=== PATIENT | male | born 1925 | race Caucasian/White ===

== ENCOUNTER → 2016-08-21 | Outpatient (CLI) | payer MEDICARE | LOC: LAB 13:32 | PROVIDERS: ATTEND Family Medicine | DX: Z51.81 Encounter for therapeutic drug level monitoring (principal); Z79.01 Long term (current) use of anticoagulants | CPT/HCPCS: 36415; 85610 ==

== ENCOUNTER 2016-09-11 13:22 | Outpatient (RCR) | payer MEDICARE ==
[~2016-09-11 13:22] MED LIST: ALB.5NB20 HHN; ALBU2.5V4 IH; ALPR.25T PO; AMIO100T4 PO; ASPI-586 PO; CALC1TAB38 PO; CARB1TAB6 PO; CEFD300C PO; CLOP75TA3 PO; DRON400T2 PO; FORM12CA IH; IPRA30SP NS; LEVO112T2 PO; MECL-105 PO; MOME0.132 IH; NF-SOLIF5T PO; NITR0.4T7 SL; OMEG-7 PO; PANT40SU PO; SENN-1 PO; SERT50TA2 PO; SIMV20TA PO; SOTA80TA PO; WARF2.5T PO; WRF2.5T PO
[2016-11-24] MEDS ORDERED: DIGO125T PO (19:01)
[2016-11-24] MEDS ORDERED: RANI300T6 PO (19:01)
== END 2016-12-10 | disposition home or self-care (01) ==
LOC: DT 13:22
PROVIDERS: ATTEND Internal Medicine Gastroenterology
DX: R63.4 Abnormal weight loss (principal); R63.6 Underweight; Z68.1 Body mass index [BMI] 19.9 or less, adult; K90.0 Celiac disease; Z71.3 Dietary counseling and surveillance
CPT/HCPCS: 97803

== ENCOUNTER → 2016-09-15 | Outpatient (CLI) | payer MEDICARE | LOC: LAB 13:35 | PROVIDERS: ATTEND Family Medicine | DX: Z51.81 Encounter for therapeutic drug level monitoring (principal); Z79.01 Long term (current) use of anticoagulants | CPT/HCPCS: 36415; 85610 ==

== ENCOUNTER → 2016-10-16 | Outpatient (CLI) | payer MEDICARE | LOC: LAB 14:09 | PROVIDERS: ATTEND Family Medicine | DX: Z51.81 Encounter for therapeutic drug level monitoring (principal); Z79.01 Long term (current) use of anticoagulants | CPT/HCPCS: 36415; 85610 ==

== ENCOUNTER → 2016-11-14 | Outpatient (CLI) | payer MEDICARE | LOC: LAB 13:37 | PROVIDERS: ATTEND Family Medicine | DX: Z51.81 Encounter for therapeutic drug level monitoring (principal); Z79.01 Long term (current) use of anticoagulants | CPT/HCPCS: 36415; 85610 ==

== ENCOUNTER 2016-11-24 16:15 | Emergency (ER) | payer MEDICARE ==
[~2016-11-24] VITALS: Ht 182.9 cm; Wt 61.9 kg
--- OUTSIDE RECORDS SUMMARY | 2016-11-24 16:21 | XMS REPORT | Continuity of Care Document ---
Author Author [facility] Organization [facility] Address Unknown Phone Unavailable Allergies Active Description Code Type Severity Reaction Onset Reported/Identified Relationship to Patient Clinical Status Yes tamsulosin HCl [id number] Drug Allergy Unknown N/A 07/29/2012 Yes ciprofloxacin NKMA N/A unknown 12/16/2013 Yes doxycycline NKMA N/A unknown 12/16/2013 Yes dutasteride NKMA N/A Unknown 12/16/2013 Yes finasteride NKMA N/A Unknown 12/16/2013 Yes sulfamethoxazole NKMA N/A unknown 12/16/2013 Yes sulfamethoxazole [id number] Drug Allergy Mild Rash 06/08/2014 Yes trimethoprim [id number] Drug Allergy Mild Rash 06/08/2014 Yes ciprofloxacin [id number] Drug Allergy Unknown N/A 06/08/2014 Yes doxycycline [id number] Drug Allergy Unknown N/A 06/08/2014 Yes dutasteride [id number] Drug Allergy Unknown N/A 06/08/2014 Yes finasteride [id number] Drug Allergy Unknown N/A 06/08/2014 Yes Flomax NKMA N/A N/A 03/08/2015 Yes oxybutynin NKMA N/A N/A 03/08/2015 Medications Problems Date Dx Coded Attending Type Code Diagnosis Diagnosed By 05/10/2012 Ot 605 REDUN PREPUCE PHIMOSIS 06/26/2012 Ot 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 07/29/2012 Ot 427.31 ATRIAL FIBRILLATION 07/29/2012 Ot V58.61 ANTICOAGULANTS,LT,CURRENT USE 12/11/2012 Ot 427.89 CARDIAC DYSRHYTHMIAS NEC 12/11/2012 Ot 786.50 CHEST PAIN NOS 12/26/2012 Ot 724.2 LUMBAGO 05/05/2013 Dawood Mccracken MD Ot 600.00 HYPERTROPHY (BENIGN) OF PROSTATE W/O URI 05/05/2013 Dawood Mccracken MD Ot 600.01 HYPERTROPHY (BENIGN) OF PROSTATE W URINA 05/05/2013 Dawood Mccracken MD Ot 600.91 HYPERPLASIA OF PROSTATE, UNSPEC, W URINA 05/05/2013 Dawood Mccracken MD Ot 783.21 LOSS OF WEIGHT 05/05/2013 Dawood Mccracken MD Ot 788.20 RETENTION OF URINE NOS 05/05/2013 Dawood Mccracken MD Ot 788.21 INCOMPLETE BLADDER EMPTYING 05/05/2013 Dawood Mccracken MD Ot 788.41 URINARY FREQUENCY 05/05/2013 Dawood Mccracken MD Ot 789.04 ABDOMINAL PAIN, LEFT LOWER QUADRANT 06/12/2014 MAEGAN GOEL MD Ot 038.9 SEPTICEMIA NOS 06/12/2014 MAEGAN GOEL MD Ot 244.9 HYPOTHYROIDISM NOS 06/12/2014 MAEGAN GOEL MD Ot 276.51 DEHYDRATION 06/12/2014 MAEGAN GOEL MD Ot 300.00 ANXIETY STATE NOS 06/12/2014 MAEGAN GOEL MD Ot 333.94 RESTLESS LEGS SYNDROME 06/12/2014 MAEGAN GOEL MD Ot 414.01 CORONARY ATHEROSCLEROSIS OF [place] CORON 06/12/2014 MAEGAN GOEL MD Ot 427.31 ATRIAL FIBRILLATION 06/12/2014 MAEGAN GOEL MD Ot 486 PNEUMONIA, ORGANISM NOS 06/12/2014 MAEGAN GOEL MD Ot 493.90 ASTHMA, UNSPECIFIED 06/12/2014 MAEGAN GOEL MD Ot 518.82 OTHER PULMONARY INSUFFICIENCY, NEC 06/12/2014 MAEGAN GOEL MD Ot 530.81 ESOPHAGEAL REFLUX 06/12/2014 MAEGAN GOEL MD Ot 564.00 UNSPEC CONSTIPATION 06/12/2014 MAEGAN GOEL MD Ot 719.47 JOINT PAIN-ANKLE 06/12/2014 MAEGAN GOEL MD Ot 733.00 OSTEOPOROSIS NOS 06/12/2014 MAEGAN GOEL MD Ot 788.20 RETENTION OF URINE NOS 06/12/2014 MAEGAN GOEL MD Ot 824.8 FX ANKLE NOS-CLOSED 06/12/2014 MAEGAN GOEL MD Ot 995.91 SEPSIS 06/12/2014 MAEGAN GOEL MD Ot E000.8 OTHER EXTERNAL CAUSE STATUS 06/12/2014 MAEGAN GOEL MD Ot E030 UNSPECIFIED ACTIVITY 06/12/2014 MAEGAN GOEL MD Ot E849.0 ACCIDENT IN HOME 06/12/2014 MANASA ROSALES, MAEGAN [place] Ot E888.9 FALL NOS 06/12/2014 MANASA ROSALES, MAEGAN [place] Ot V58.61 ANTICOAGULANTS,LT,CURRENT USE 06/12/2014 MANASA ROSALES, MAEGAN [place] Ot V58.66 LONG-TERM (CURRENT) USE OF ASPIRIN 08/01/2014 VONDA ROSALES, MOE English Ot 285.9 08/01/2014 VONDA ROSALES, MOE English Ot 790.6 08/01/2014 VONDA ROSALES, MOE English Ot V58.61 08/01/2014 VONDA ROSALES, MOE English Ot V58.83 08/10/2014 VONDA ROSALES, MOE English Ot 276.51 08/11/2014 VONDA ROSALES, MOE English Ot 285.9 08/11/2014 VONDA ROSALES, MOE English Ot 790.6 08/11/2014 VONDA ROSALES, MOE English Ot V58.61 08/11/2014 VONDA ROSALES, MOE English Ot V58.83 08/19/2014 VONDA ROSALES, MOE English Ot 276.51 08/28/2014 VONDA ROSALES, MOE English Ot V58.61 08/28/2014 VONDA ROSALES, MOE English Ot V58.83 09/18/2014 ALEXEI ROSALES, NIDA [place] Ot 780.4 DIZZINESS AND GIDDINESS 09/24/2014 VONDA ROSALES, MOE English Ot 593.2 09/24/2014 VONDA ROSALES, MOE English Ot 789.01 10/07/2014 VONDA ROSALES, MOE English Ot 575.9 10/07/2014 VONDA ROSALES, MOE English Ot 789.00 10/07/2014 VONDA ROSALES, MOE [place] Ot 790.6 10/07/2014 VONDA ROSALES, MOE English Ot V58.61 10/07/2014 VONDA ROSALES, MOE English Ot 593.2 10/07/2014 VONDA ROSALES, MOE English Ot 789.01 10/08/2014 Ot 244.9 10/08/2014 Ot 285.9 10/08/2014 Ot 733.00 10/08/2014 Ot 790.6 10/08/2014 Ot V58.61 10/08/2014 Ot V58.69 10/08/2014 Ot 789.30 10/08/2014 Ot 427.31 10/08/2014 Ot 427.89 10/08/2014 Ot V58.61 10/08/2014 Ot V58.61 10/08/2014 Ot V58.61 10/08/2014 Ot 575.9 10/08/2014 Ot 575.10 10/08/2014 Ot 575.9 10/08/2014 Ot 562.10 10/08/2014 Ot 783.21 10/08/2014 Ot 789.00 10/08/2014 Ot V12.72 10/08/2014 Ot V58.61 10/08/2014 Ot V58.61 10/08/2014 Ot V58.61 10/08/2014 Ot V58.61 10/08/2014 Ot V58.61 10/08/2014 Ot V58.61 10/08/2014 Ot V58.61 10/08/2014 Ot V58.83 10/08/2014 Ot 427.31 10/08/2014 Ot V58.61 10/08/2014 Ot V58.83 10/08/2014 Ot 530.81 10/08/2014 Ot 553.3 10/08/2014 Ot 787.20 10/08/2014 Ot 244.9 10/08/2014 Ot 285.9 10/08/2014 Ot 790.29 10/08/2014 Ot 790.6 10/08/2014 Ot V58.61 10/08/2014 Ot V58.83 10/08/2014 Ot V58.61 10/08/2014 Ot V58.83 10/08/2014 Ot 579.0 10/08/2014 Ot V58.61 10/08/2014 Ot V58.83 10/08/2014 VONDA ROSALES, MOE English Ot V58.61 10/08/2014 VONDA ROSALES, MOE English Ot V58.69 10/08/2014 VONDA ROSALES, MOE English Ot V58.61 10/08/2014 VONDA ROSALES, MOE English Ot V58.61 10/08/2014 VONDA ROSALES, MOE English Ot V58.83 10/08/2014 VONDA ROSALES, MOE English Ot V58.61 10/08/2014 VONDA ROSALES, MOE R Ot V58.61 10/08/2014 VONDA ROSALES, MOE R Ot V58.61 10/08/2014 VONDA ROSALES, MOE R Ot V58.83 10/08/2014 VONDA ROSALES, MOE R Ot V58.61 10/08/2014 VONDA ROSALES, MOE R Ot V58.83 10/08/2014 VONDA ROSALES, MOE R Ot V58.61 10/08/2014 VONDA ROSALES, MOE R Ot V58.61 10/08/2014 Barbie ROSALES, Karil L Ot 793.19 10/08/2014 Barbie ROSALES, Karil L Ot V58.69 10/08/2014 VONDA ROSALES, MOE R Ot V58.61 10/08/2014 VONDA ROSALES, MOE R Ot 276.51 10/08/2014 VONDA ROSALES, MOE R Ot V58.61 10/08/2014 VONDA ROSALES, MOE R Ot V58.83 10/08/2014 VONDA ROSALES, MOE R Ot V58.61 10/08/2014 VONDA ROSALES, MOE R Ot V58.83 10/08/2014 VONDA ROSALES, MOE R Ot V58.61 10/08/2014 VONDA ROSALES, MOE R Ot V58.83 10/08/2014 VONDA ROSALES, MOE R Ot 427.9 10/08/2014 VONDA ROSALES, MOE R Ot 786.2 10/08/2014 VONDA ROSALES, MOE R Ot V58.61 10/08/2014 VONDA ROSALES, MOE R Ot V58.83 10/08/2014 VONDA ROSALES, MOE R Ot V58.61 10/08/2014 VONDA ROSALES, MOE R Ot V58.83 10/08/2014 VONDA ROSALES, MOE R Ot V58.61 10/08/2014 VONDA ROSALES, MOE R Ot V58.83 10/08/2014 VONDA ROSALES, MOE R Ot 285.9 10/08/2014 VONDA ROSALES, MOE R Ot 790.6 10/08/2014 VONDA ROSALES, MOE R Ot V58.61 10/08/2014 VONDA ROSALES, MOE R Ot V58.83 10/08/2014 VONDA ROSALES, MOE R Ot V58.61 10/08/2014 VONDA ROSALES, MOE R Ot V58.83 10/08/2014 VONDA ROSALES, MOE R Ot 575.9 10/08/2014 VONDA ROSALES, MOE R Ot 789.00 10/08/2014 VONDA ROSALES, MOE R Ot 790.6 10/08/2014 VONDA ROSALES, MOE R Ot V58.61 10/08/2014 VONDA ROSALES, MOE R Ot 593.2 10/08/2014 VONDA ROSALES, MOE R Ot 789.01 10/08/2014 VONDA ROSALES, MOE R Ot 593.2 10/08/2014 VONDA ROSALES, MOE R Ot 789.01 11/27/2014 Ot V58.61 11/27/2014 Ot V58.83 12/30/2014 Barbie ROSALES, Karil L Ot 427.31 12/30/2014 Barbie ROSALES, Karil L Ot 493.20 12/30/2014 Barbie ROSALES, Karil L Ot V58.69 01/12/2015 Barbie ROSALES, Karil L Ot 427.31 01/12/2015 Barbie ROSALES, Karil L Ot 493.20 01/12/2015 Barbie ROSALES, Karil L Ot V58.69 01/25/2015 VONDA ROSALES, MOE R Ot 575.9 01/25/2015 VONDA ROSALES, MOE English Ot 789.00 01/25/2015 VONDA ROSALES, MOE R Ot 790.6 01/25/2015 VONDA ROSALES, MOE R Ot V58.61 01/29/2015 VONDA ROSALES, MOE R Ot V58.61 01/29/2015 VONDA ROSALES, MOE English Ot V58.83 03/03/2015 VONDA ROSALES, MOE R Ot V58.61 03/03/2015 VONDA ROSALES, MOE R Ot V58.83 04/02/2015 VONDA ROSALES, MOE English Ot V58.61 04/02/2015 VONDA ROSALES, MOE English Ot V58.83 04/15/2015 VONDA ROSALES, MOE English Ot V58.61 05/04/2015 VONDA ROSALES, MOE English Ot V58.61 05/04/2015 VONDA ROSALES, MOE English Ot V58.83 05/13/2015 VONDA ROSALES, MOE English Ot V58.61 06/07/2015 VONDA ROSALES, MOE English Ot V58.61 06/07/2015 VONDA ROSALES, MOE English Ot V58.83 06/14/2015 VONDA ROSALES, MOE English Ot Z51.81 06/14/2015 VONDA ROSALES, MOE English Ot Z79.01 07/03/2015 SONNY RAYGOZA DO Ot E03.9 HYPOTHYROIDISM, UNSPECIFIED 07/03/2015 SONNY RAYGOZA DO Ot I25.10 ATHSCL HEART DISEASE OF [place] CORONARY 07/03/2015 SONNY RAYGOZA DO Ot I48.0 PAROXYSMAL ATRIAL FIBRILLATION 07/03/2015 SONNY RYAGOZA DO Ot I48.2 CHRONIC ATRIAL FIBRILLATION 07/03/2015 SONNY RAYGOZA DO Ot I95.1 ORTHOSTATIC HYPOTENSION 07/03/2015 SONNY RAYGOZA DO Ot R00.2 PALPITATIONS 07/03/2015 SONNY RAYGOZA DO Ot Z79.01 ACTIVITIES COORDINATOR (CURRENT) USE OF ANTICOAGULANT 07/06/2015 VONDA ROSALES, MOE English Ot Z51.81 07/06/2015 VONDA ROSALES, MOE English Ot Z79.01 08/05/2015 VONDA ROSALES, MOE English Ot Z51.81 08/05/2015 VONDA ROSALES, MOE English Ot Z79.01 08/05/2015 VONDA ROSALES, MOE English Ot Z79.899 09/17/2015 VONDA ROSALES, MOE English Ot Z79.01 FDC (CURRENT) USE OF ANTICOAGULANT 10/15/2015 VONDA ROSALES, MOE English Ot N28.1 10/21/2015 VONDA ROSALES, MOE English Ot N28.1 11/11/2015 VONDA ROSALES, MOE English Ot Z51.81 11/11/2015 VONDA ROSALES, MOE English Ot Z79.01 11/15/2015 VONDA ROSALES, MOE English Ot Z53.9 11/16/2015 VONDA ROSALES, MOE English Ot Z79.01 11/16/2015 MOE FERRARI MD Ot Z79.01 11/17/2015 MOE FERRARI MD Ot N28.1 11/17/2015 MOE FERRARI MD Ot N28.1 12/08/2015 MOE FERRARI MD Ot Z51.81 ENCOUNTER FOR THERAPEUTIC DRUG LEVEL MON 12/08/2015 MOE FERRARI MD Ot Z79.01 FDC (CURRENT) USE OF ANTICOAGULANT 12/20/2015 MOE FERRARI MD, Ot Z79.01 ACTIVITIES COORDINATOR (CURRENT) USE OF ANTICOAGULANT 12/20/2015 MOE FERRARI MD Ot Z79.01 FDC (CURRENT) USE OF ANTICOAGULANT 12/24/2015 MOE FERRARI MD, Ot Z79.01 FDC (CURRENT) USE OF ANTICOAGULANT 01/13/2016 MOE FERRARI MD Ot Z51.81 ENCOUNTER FOR THERAPEUTIC DRUG LEVEL MON 01/13/2016 MOE FERRARI MD Ot Z79.01 FDC (CURRENT) USE OF ANTICOAGULANT 01/19/2016 MOE FERRARI MD Ot Z79.01 FDC (CURRENT) USE OF ANTICOAGULANT 01/19/2016 MOE FERRARI MD Ot Z79.01 FDC (CURRENT) USE OF ANTICOAGULANT 01/20/2016 MOE FERRARI MD Ot Z79.01 ACTIVITIES COORDINATOR (CURRENT) USE OF ANTICOAGULANT 02/09/2016 MOE FERRARI MD Ot Z51.81 ENCOUNTER FOR THERAPEUTIC DRUG LEVEL MON 02/09/2016 MOE FERRARI MD Ot Z79.01 ACTIVITIES COORDINATOR (CURRENT) USE OF ANTICOAGULANT 02/17/2016 MOE FERRARI MD Ot Z51.81 ENCOUNTER FOR THERAPEUTIC DRUG LEVEL MON 02/17/2016 MOE FERRARI MD Ot Z79.01 ACTIVITIES COORDINATOR (CURRENT) USE OF ANTICOAGULANT 02/18/2016 MOE FERRARI MD Ot Z79.01 FDC (CURRENT) USE OF ANTICOAGULANT 02/18/2016 MOE FERRARI MD Ot Z79.01 FDC (CURRENT) USE OF ANTICOAGULANT 02/22/2016 MOE FERRARI MD Ot Z79.01 FDC (CURRENT) USE OF ANTICOAGULANT 02/23/2016 MOE FERRARI MD, Ot Z51.81 ENCOUNTER FOR THERAPEUTIC DRUG LEVEL MON 02/23/2016 MOE FERRARI MD Ot Z79.01 ACTIVITIES COORDINATOR (CURRENT) USE OF ANTICOAGULANT 03/09/2016 MOE FERRARI MD, Ot Z51.81 ENCOUNTER FOR THERAPEUTIC DRUG LEVEL MON 03/09/2016 MOE FERRARI MD, Ot Z79.01 FDC (CURRENT) USE OF ANTICOAGULANT 03/10/2016 MOE FERRARI MD, Ot Z51.81 ENCOUNTER FOR THERAPEUTIC DRUG LEVEL MON 03/10/2016 MOE FERRARI MD, Ot Z79.01 FDC (CURRENT) USE OF ANTICOAGULANT 03/17/2016 MOE FERRARI MD, Ot I48.91 UNSPECIFIED ATRIAL FIBRILLATION 03/17/2016 MOE FERRARI MD, Ot 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 03/17/2016 MOE FERRARI MD, Ot I48.91 UNSPECIFIED ATRIAL FIBRILLATION 03/17/2016 MOE FERRARI MD, Ot 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 03/22/2016 MOE FERRARI MD, Ot 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 03/22/2016 MOE FERRARI MD, Ot I48.91 UNSPECIFIED ATRIAL FIBRILLATION 03/22/2016 MOE FERARRI MD, Ot 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 03/22/2016 MOE FERRARI MD, Ot 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 03/22/2016 MOE FERRARI MD, Ot R79.89 OTHER SPECIFIED ABNORMAL FINDINGS OF BLO 03/22/2016 MOE FERRARI MD, Ot Z79.01 ACTIVITIES COORDINATOR (CURRENT) USE OF ANTICOAGULANT 03/28/2016 MOE FERRARI MD Ot 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 03/28/2016 MOE FERRARI MD Ot I48.91 UNSPECIFIED ATRIAL FIBRILLATION 03/28/2016 MOE FERRARI MD, Ot 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 03/28/2016 MOE FERRARI MD Ot 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 03/28/2016 MOE FERRARI MD Ot R79.89 OTHER SPECIFIED ABNORMAL FINDINGS OF BLO 03/28/2016 MOE FERRARI MD, Ot Z79.01 ACTIVITIES COORDINATOR (CURRENT) USE OF ANTICOAGULANT 04/10/2016 MOE FERRARI MD, Ot 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 04/10/2016 MOE FERRARI MD, Ot I48.91 UNSPECIFIED ATRIAL FIBRILLATION 04/10/2016 MOE FERRARI MD, Ot 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 04/10/2016 MOE FERRARI MD, Ot 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 04/10/2016 MOE FERRARI MD, Ot R79.89 OTHER SPECIFIED ABNORMAL FINDINGS OF BLO 04/10/2016 MOE FERRARI MD, Ot Z79.01 ACTIVITIES COORDINATOR (CURRENT) USE OF ANTICOAGULANT 04/17/2016 MOE FERRARI MD, Ot Z79.01 ACTIVITIES COORDINATOR (CURRENT) USE OF ANTICOAGULANT 04/17/2016 MOE FERRARI MD, Ot Z79.01 FDC (CURRENT) USE OF ANTICOAGULANT 04/18/2016 MOE FERRARI MD, Ot Z79.01 ACTIVITIES COORDINATOR (CURRENT) USE OF ANTICOAGULANT 04/21/2016 MOE FERRARI MD, Ot Z79.01 FDC (CURRENT) USE OF ANTICOAGULANT 04/21/2016 MOE FERRARI MD, Ot Z51.81 ENCOUNTER FOR THERAPEUTIC DRUG LEVEL MON 04/21/2016 MOE FERRARI MD, Ot Z79.01 ACTIVITIES COORDINATOR (CURRENT) USE OF ANTICOAGULANT 04/27/2016 MOE FERRARI MD, Ot 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 04/27/2016 MOE FERRARI MD, Ot I48.91 UNSPECIFIED ATRIAL FIBRILLATION 04/27/2016 MOE FERRARI MD, Ot 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 04/27/2016 MOE FERRARI MD, Ot 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 04/27/2016 MOE FERRARI MD, Ot R79.89 OTHER SPECIFIED ABNORMAL FINDINGS OF BLO 04/27/2016 MOE FERRARI MD, Ot Z79.01 FDC (CURRENT) USE OF ANTICOAGULANT 05/10/2016 MOE FERRARI MD Ot Z51.81 ENCOUNTER FOR THERAPEUTIC DRUG LEVEL MON 05/10/2016 MOE FERRARI MD Ot Z79.01 ACTIVITIES COORDINATOR (CURRENT) USE OF ANTICOAGULANT 05/18/2016 MOE FERRARI MD Ot Z79.01 FDC (CURRENT) USE OF ANTICOAGULANT 05/18/2016 MOE FERRARI MD Ot Z79.01 ACTIVITIES COORDINATOR (CURRENT) USE OF ANTICOAGULANT 2016 Barbie ROSALES, Atifil L Ot I48.0 PAROXYSMAL ATRIAL FIBRILLATION 2016 Barbie ROSALES, Karil L Ot I48.0 PAROXYSMAL ATRIAL FIBRILLATION 05/24/2016 MOE FERRARI MD Ot R63.4 ABNORMAL WEIGHT LOSS 05/24/2016 MOE FERRARI MD Ot R63.4 ABNORMAL WEIGHT LOSS 05/24/2016 MOE FERRARI MD Ot Z51.81 ENCOUNTER FOR THERAPEUTIC DRUG LEVEL MON 05/24/2016 MOE FERRARI MD Ot Z79.01 ACTIVITIES COORDINATOR (CURRENT) USE OF ANTICOAGULANT 05/24/2016 Domingo Valentin MD L Ot I48.0 PAROXYSMAL ATRIAL FIBRILLATION 05/24/2016 MOE FERRARI MD Ot R63.4 ABNORMAL WEIGHT LOSS 05/25/2016 MOE FERRARI MD Ot Z51.81 ENCOUNTER FOR THERAPEUTIC DRUG LEVEL MON 05/25/2016 MOE FERRARI MD Ot Z79.01 FDC (CURRENT) USE OF ANTICOAGULANT 05/25/2016 Domingo Valentin MD Ot I48.0 PAROXYSMAL ATRIAL FIBRILLATION 06/09/2016 MOE FERRARI MD Ot R63.4 ABNORMAL WEIGHT LOSS 06/12/2016 Barbie ROSALES, Karil L Ot I48.0 PAROXYSMAL ATRIAL FIBRILLATION 06/12/2016 MOE FERRARI MD Ot Z51.81 ENCOUNTER FOR THERAPEUTIC DRUG LEVEL MON 06/12/2016 MOE FERRARI MD Ot Z79.01 FDC (CURRENT) USE OF ANTICOAGULANT 06/13/2016 MOE FERRARI MD Ot R63.4 ABNORMAL WEIGHT LOSS 06/14/2016 MOE FERRARI MD Ot Z51.81 ENCOUNTER FOR THERAPEUTIC DRUG LEVEL MON 06/14/2016 MOE FERRARI MD Ot Z79.01 ACTIVITIES COORDINATOR (CURRENT) USE OF ANTICOAGULANT 06/14/2016 Barbie ROSALES Karil L Ot I48.0 PAROXYSMAL ATRIAL FIBRILLATION 06/16/2016 MOE FERRARI MD Ot Z79.01 ACTIVITIES COORDINATOR (CURRENT) USE OF ANTICOAGULANT 06/16/2016 MOE FERRARI MD Ot Z79.01 ACTIVITIES COORDINATOR (CURRENT) USE OF ANTICOAGULANT 06/16/2016 MOE FERRARI MD, Ot Z79.01 ACTIVITIES COORDINATOR (CURRENT) USE OF ANTICOAGULANT 06/19/2016 Ot 244.9 HYPOTHYROIDISM NOS 06/19/2016 Ot 285.9 ANEMIA NOS 06/19/2016 Ot 733.00 OSTEOPOROSIS NOS 06/19/2016 Ot 790.6 ABN BLOOD CHEMISTRY NEC 06/19/2016 Ot V58.61 ANTICOAGULANTS,LT,CURRENT USE 06/19/2016 Ot V58.69 OTH MED,LT,CURRENT USE 06/19/2016 Ot 789.30 ABDOMINAL/PELVIC SWELLING,MASS/LUMP UNSP 06/19/2016 Ot 427.31 ATRIAL FIBRILLATION 06/19/2016 Ot 427.89 CARDIAC DYSRHYTHMIAS NEC 06/19/2016 Ot V58.61 ANTICOAGULANTS,LT,CURRENT USE 06/19/2016 Ot V58.61 ANTICOAGULANTS,LT,CURRENT USE 06/19/2016 Ot V58.61 ANTICOAGULANTS,LT,CURRENT USE 06/19/2016 Ot 575.9 DIS OF GALLBLADDER NOS 06/19/2016 Ot 575.10 CHOLECYSTITIS, NOS 06/19/2016 Ot 575.9 DIS OF GALLBLADDER NOS 06/19/2016 Ot 562.10 DIVERTICULOSIS COLON (W/O MENT OF HEMORR 06/19/2016 Ot 783.21 LOSS OF WEIGHT 06/19/2016 Ot 789.00 ABDOMINAL PAIN, UNSPECIFIED SITE 06/19/2016 Ot V12.72 PERSONAL HISTORY OF COLONIC POLYPS 06/19/2016 Ot V58.61 ANTICOAGULANTS,LT,CURRENT USE 06/19/2016 Ot V58.61 ANTICOAGULANTS,LT,CURRENT USE 06/19/2016 Ot V58.61 ANTICOAGULANTS,LT,CURRENT USE 06/19/2016 Ot V58.61 ANTICOAGULANTS,LT,CURRENT USE 06/19/2016 Ot V58.61 ANTICOAGULANTS,LT,CURRENT USE 06/19/2016 Ot V58.61 ANTICOAGULANTS,LT,CURRENT USE 06/19/2016 Ot V58.61 ANTICOAGULANTS,LT,CURRENT USE 06/19/2016 Ot V58.83 ENCOUNTER FOR THERAPEUTIC DRUG MONITORIN 06/19/2016 Ot 427.31 ATRIAL FIBRILLATION 06/19/2016 Ot V58.61 ANTICOAGULANTS,LT,CURRENT USE 06/19/2016 Ot V58.83 ENCOUNTER FOR THERAPEUTIC DRUG MONITORIN 06/19/2016 Ot 530.81 ESOPHAGEAL REFLUX 06/19/2016 Ot 553.3 DIAPHRAGMATIC HERNIA 06/19/2016 Ot 787.20 DYSPHAGIA, UNSPECIFIED 06/19/2016 Ot 244.9 HYPOTHYROIDISM NOS 06/19/2016 Ot 285.9 ANEMIA NOS 06/19/2016 Ot 790.29 OTHER ABNORMAL GLUCOSE 06/19/2016 Ot 790.6 ABN BLOOD CHEMISTRY NEC 06/19/2016 Ot V58.61 ANTICOAGULANTS,LT,CURRENT USE 06/19/2016 Ot V58.83 ENCOUNTER FOR THERAPEUTIC DRUG MONITORIN 06/19/2016 Ot V58.61 ANTICOAGULANTS,LT,CURRENT USE 06/19/2016 Ot V58.83 ENCOUNTER FOR THERAPEUTIC DRUG MONITORIN 06/19/2016 Ot 579.0 CELIAC DISEASE 06/19/2016 Ot V58.61 ANTICOAGULANTS,LT,CURRENT USE 06/19/2016 Ot V58.83 ENCOUNTER FOR THERAPEUTIC DRUG MONITORIN 06/19/2016 VONDA ROSALES, MOE English Ot V58.61 ANTICOAGULANTS,LT,CURRENT USE 06/19/2016 MOE FERRARI MD Ot V58.69 OTH MED,LT,CURRENT USE 06/19/2016 MOE FERRARI MD Ot V58.61 ANTICOAGULANTS,LT,CURRENT USE 06/19/2016 MOE FERRARI MD Ot V58.61 ANTICOAGULANTS,LT,CURRENT USE 06/19/2016 MOE FERRARI MD Ot V58.83 ENCOUNTER FOR THERAPEUTIC DRUG MONITORIN 06/19/2016 MOE FERRRAI MD Ot V58.61 ANTICOAGULANTS,LT,CURRENT USE 06/19/2016 MOE FERRARI MD Ot V58.61 ANTICOAGULANTS,LT,CURRENT USE 06/19/2016 MOE FERRARI MD Ot V58.61 ANTICOAGULANTS,LT,CURRENT USE 06/19/2016 MOE FERRARI MD Ot V58.83 ENCOUNTER FOR THERAPEUTIC DRUG MONITORIN 06/19/2016 MOE FERRARI MD Ot V58.61 ANTICOAGULANTS,LT,CURRENT USE 06/19/2016 MOE FERRARI MD Ot V58.83 ENCOUNTER FOR THERAPEUTIC DRUG MONITORIN 06/19/2016 MOE FERRARI MD Ot V58.61 ANTICOAGULANTS,LT,CURRENT USE 06/19/2016 MOE FERRARI MD Ot V58.61 ANTICOAGULANTS,LT,CURRENT USE 06/19/2016 Barbie ROSALES, Domingo Bravo Ot 793.19 OTHER NONSPECIFIC ABNORMAL FINDING OF CARITO 06/19/2016 Barbie ROSALES, Domingo Bravo Ot V58.69 OTH MED,LT,CURRENT USE 06/19/2016 MOE FERRARI MD Ot V58.61 ANTICOAGULANTS,LT,CURRENT USE 06/19/2016 MOE FERRARI MD Ot 276.51 DEHYDRATION 06/19/2016 MOE FERRARI MD Ot V58.61 ANTICOAGULANTS,LT,CURRENT USE 06/19/2016 MOE FERRARI MD Ot V58.83 ENCOUNTER FOR THERAPEUTIC DRUG MONITORIN 06/19/2016 MOE FERRARI MD Ot V58.61 ANTICOAGULANTS,LT,CURRENT USE 06/19/2016 MOE FERRARI MD Ot V58.83 ENCOUNTER FOR THERAPEUTIC DRUG MONITORIN 06/19/2016 MOE FERRARI MD Ot V58.61 ANTICOAGULANTS,LT,CURRENT USE 06/19/2016 MOE FERRARI MD Ot V58.83 ENCOUNTER FOR THERAPEUTIC DRUG MONITORIN 06/19/2016 MOE FERRARI MD Ot 427.9 CARDIAC DYSRHYTHMIA NOS 06/19/2016 MOE FERRARI MD Ot 786.2 COUGH 06/19/2016 MOE FERRARI MD Ot V58.61 ANTICOAGULANTS,LT,CURRENT USE 06/19/2016 MOE FERRARI MD Ot V58.83 ENCOUNTER FOR THERAPEUTIC DRUG MONITORIN 06/19/2016 MOE FERRARI MD Ot V58.61 ANTICOAGULANTS,LT,CURRENT USE 06/19/2016 MOE FERRARI MD Ot V58.83 ENCOUNTER FOR THERAPEUTIC DRUG MONITORIN 06/19/2016 MOE FERRARI MD Ot V58.61 ANTICOAGULANTS,LT,CURRENT USE 06/19/2016 MOE FERRARI MD Ot V58.83 ENCOUNTER FOR THERAPEUTIC DRUG MONITORIN 06/19/2016 MOE FERRARI MD Ot 285.9 ANEMIA NOS 06/19/2016 MOE FERRARI MD Ot 790.6 ABN BLOOD CHEMISTRY NEC 06/19/2016 MOE FERRARI MD Ot V58.61 ANTICOAGULANTS,LT,CURRENT USE 06/19/2016 MOE FERRARI MD Ot V58.83 ENCOUNTER FOR THERAPEUTIC DRUG MONITORIN 06/19/2016 MOE FERRARI MD Ot V58.61 ANTICOAGULANTS,LT,CURRENT USE 06/19/2016 MOE FERRRAI MD Ot V58.83 ENCOUNTER FOR THERAPEUTIC DRUG MONITORIN 06/19/2016 MOE FERRARI MD Ot 575.9 DIS OF GALLBLADDER NOS 06/19/2016 MOE FERRARI MD Ot 789.00 ABDOMINAL PAIN, UNSPECIFIED SITE 06/19/2016 MOE FERRARI MD Ot 790.6 ABN BLOOD CHEMISTRY NEC 06/19/2016 MOE FERRARI MD Ot V58.61 ANTICOAGULANTS,LT,CURRENT USE 06/19/2016 MOE FERRARI MD Ot V58.61 ANTICOAGULANTS,LT,CURRENT USE 06/19/2016 MOE FERRARI MD Ot V58.83 ENCOUNTER FOR THERAPEUTIC DRUG MONITORIN 06/19/2016 MOE FERRARI MD Ot 593.2 CYST OF KIDNEY, ACQUIRED 06/19/2016 MOE FERRARI MD Ot 789.01 ABDOMINAL PAIN, RIGHT UPPER QUADRANT 06/19/2016 Ot V58.61 ANTICOAGULANTS,LT,CURRENT USE 06/19/2016 Ot V58.83 ENCOUNTER FOR THERAPEUTIC DRUG MONITORIN 06/19/2016 Ot V58.61 ANTICOAGULANTS,LT,CURRENT USE 06/19/2016 Ot V58.83 ENCOUNTER FOR THERAPEUTIC DRUG MONITORIN 06/19/2016 Domingo Valentin MD Ot 427.31 ATRIAL FIBRILLATION 06/19/2016 Domingo Valentin MD Ot 493.20 CHRONIC OBSTRUCTIVE ASTHMA, NOS 06/19/2016 Barbie ROSALES, Domingo Bravo Ot V58.69 OTH MED,LT,CURRENT USE 06/19/2016 MOE FERRARI MD Ot V58.61 ANTICOAGULANTS,LT,CURRENT USE 06/19/2016 MOE FERRARI MD Ot V58.83 ENCOUNTER FOR THERAPEUTIC DRUG MONITORIN 06/19/2016 MOE FERRARI MD Ot V58.61 ANTICOAGULANTS,LT,CURRENT USE 06/19/2016 MOE FERRARI MD Ot V58.83 ENCOUNTER FOR THERAPEUTIC DRUG MONITORIN 06/19/2016 MOE FERRARI MD, Ot V58.61 ANTICOAGULANTS,LT,CURRENT USE 06/19/2016 MOE FERRARI MD, Ot V58.83 ENCOUNTER FOR THERAPEUTIC DRUG MONITORIN 06/19/2016 MOE FERRARI MD, Ot V58.61 ANTICOAGULANTS,LT,CURRENT USE 06/19/2016 MOE FERRARI MD, Ot V58.83 ENCOUNTER FOR THERAPEUTIC DRUG MONITORIN 06/19/2016 MOE FERRARI MD Ot Z51.81 ENCOUNTER FOR THERAPEUTIC DRUG LEVEL MON 06/19/2016 MOE FERRARI MD, Ot Z79.01 ACTIVITIES COORDINATOR (CURRENT) USE OF ANTICOAGULANT 06/19/2016 MOE FERRARI MD, Ot Z51.81 ENCOUNTER FOR THERAPEUTIC DRUG LEVEL MON 06/19/2016 MOE FERRARI MD, Ot Z79.01 ACTIVITIES COORDINATOR (CURRENT) USE OF ANTICOAGULANT 06/19/2016 Nati Kim APRN Ot I48.91 UNSPECIFIED ATRIAL FIBRILLATION 06/19/2016 MOE FERRARI MD, Ot Z51.81 ENCOUNTER FOR THERAPEUTIC DRUG LEVEL MON 06/19/2016 MOE FERRARI MD, Ot Z79.01 ACTIVITIES COORDINATOR (CURRENT) USE OF ANTICOAGULANT 06/19/2016 MOE FERRARI MD Ot Z79.899 OTHER ACTIVITIES COORDINATOR (CURRENT) DRUG THERAPY 06/19/2016 MOE FERRARI MD Ot Z53.9 PROCEDURE AND TREATMENT NOT CARRIED OUT , 06/19/2016 MOE FERRARI MD, Ot N28.1 CYST OF KIDNEY, ACQUIRED 06/19/2016 MOE FERRARI MD Ot Z51.81 ENCOUNTER FOR THERAPEUTIC DRUG LEVEL MON 06/19/2016 MOE FERRARI MD, Ot Z79.01 FDC (CURRENT) USE OF ANTICOAGULANT 06/19/2016 MOE FERRARI MD Ot Z51.81 ENCOUNTER FOR THERAPEUTIC DRUG LEVEL MON 06/19/2016 MOE FERRARI MD, Ot Z79.01 FDC (CURRENT) USE OF ANTICOAGULANT 06/19/2016 MOE FERRARI MD Ot Z51.81 ENCOUNTER FOR THERAPEUTIC DRUG LEVEL MON 06/19/2016 MOE FERRARI MD Ot Z79.01 ACTIVITIES COORDINATOR (CURRENT) USE OF ANTICOAGULANT 06/19/2016 MOE FERRARI MD, Ot Z51.81 ENCOUNTER FOR THERAPEUTIC DRUG LEVEL MON 06/19/2016 MOE FERRARI MD, Ot Z79.01 ACTIVITIES COORDINATOR (CURRENT) USE OF ANTICOAGULANT 06/19/2016 MOE FERRARI MD, Ot Z51.81 ENCOUNTER FOR THERAPEUTIC DRUG LEVEL MON 06/19/2016 MOE FERRARI MD, Ot Z79.01 ACTIVITIES COORDINATOR (CURRENT) USE OF ANTICOAGULANT 06/19/2016 MOE FERRARI MD, Ot 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 06/19/2016 MOE FERRARI MD, Ot I48.91 UNSPECIFIED ATRIAL FIBRILLATION 06/19/2016 MOE FERRARI MD, Ot 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 06/19/2016 MOE FERRARI MD, Ot 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 06/19/2016 MOE FERRARI MD Ot R79.89 OTHER SPECIFIED ABNORMAL FINDINGS OF BLO 06/19/2016 MOE FERRARI MD, Ot Z79.01 FDC (CURRENT) USE OF ANTICOAGULANT 06/19/2016 MOE FERRARI MD, Ot Z51.81 ENCOUNTER FOR THERAPEUTIC DRUG LEVEL MON 06/19/2016 MOE FERRARI MD, Ot Z79.01 FDC (CURRENT) USE OF ANTICOAGULANT 06/19/2016 MOE FERRARI MD Ot R63.4 ABNORMAL WEIGHT LOSS 06/19/2016 MOE FERRARI MD, Ot Z51.81 ENCOUNTER FOR THERAPEUTIC DRUG LEVEL MON 06/19/2016 MOE FERRARI MD, Ot Z79.01 ACTIVITIES COORDINATOR (CURRENT) USE OF ANTICOAGULANT 06/19/2016 Domingo Valentin MD Ot I48.0 PAROXYSMAL ATRIAL FIBRILLATION 06/19/2016 MOE FERRARI MD Ot Z79.01 ACTIVITIES COORDINATOR (CURRENT) USE OF ANTICOAGULANT 06/21/2016 MOE FERRARI MD, Ot Z51.81 ENCOUNTER FOR THERAPEUTIC DRUG LEVEL MON 06/21/2016 MOE FERRARI MD, Ot Z79.01 ACTIVITIES COORDINATOR (CURRENT) USE OF ANTICOAGULANT 07/06/2016 MOE FERRARI MD, Ot 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 07/06/2016 MOE FERRARI MD, Ot I48.91 UNSPECIFIED ATRIAL FIBRILLATION 07/06/2016 MOE FERRARI MD, Ot 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 07/06/2016 MOE FERRARI MD, Ot 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 07/06/2016 MOE FERRARI MD, Ot R79.89 OTHER SPECIFIED ABNORMAL FINDINGS OF BLO 07/06/2016 MOE FERRARI MD, Ot Z79.01 ACTIVITIES COORDINATOR (CURRENT) USE OF ANTICOAGULANT 07/10/2016 MOE FERRARI MD, Ot Z51.81 ENCOUNTER FOR THERAPEUTIC DRUG LEVEL MON 07/10/2016 MOE FERRARI MD, Ot Z79.01 FDC (CURRENT) USE OF ANTICOAGULANT 07/18/2016 MOE FERRARI MD, Ot Z79.01 ACTIVITIES COORDINATOR (CURRENT) USE OF ANTICOAGULANT 07/18/2016 MOE FERRARI MD, Ot Z79.01 FDC (CURRENT) USE OF ANTICOAGULANT 07/18/2016 MOE FERRARI MD, Ot Z79.01 FDC (CURRENT) USE OF ANTICOAGULANT 07/18/2016 MOE FERRARI MD, Ot Z79.01 FDC (CURRENT) USE OF ANTICOAGULANT 07/21/2016 MOE FERRARI MD, Ot 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 07/21/2016 MOE FERRARI MD, Ot 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 07/22/2016 MOE FERRARI MD, Ot 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 07/24/2016 MOE FERRARI MD, Ot 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 07/24/2016 MOE FERRARI MD, Ot Z51.81 ENCOUNTER FOR THERAPEUTIC DRUG LEVEL MON 07/24/2016 MOE FERRARI MD, Ot Z79.01 FDC (CURRENT) USE OF ANTICOAGULANT 07/26/2016 MOE FERRARI MD, Ot Z51.81 ENCOUNTER FOR THERAPEUTIC DRUG LEVEL MON 07/26/2016 MOE FERRARI MD, Ot Z79.01 ACTIVITIES COORDINATOR (CURRENT) USE OF ANTICOAGULANT 07/28/2016 MOE FERRARI MD, Ot 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 08/10/2016 SILVIA ROSALES, SOURAV [place] Ot K90.0 CELIAC DISEASE 08/11/2016 MOE FERRARI MD, Ot Z51.81 ENCOUNTER FOR THERAPEUTIC DRUG LEVEL MON 08/11/2016 MOE FERRARI MD, Ot Z79.01 FDC (CURRENT) USE OF ANTICOAGULANT 08/14/2016 OME FERRARI MD, Ot R63.4 ABNORMAL WEIGHT LOSS 08/16/2016 MOE FERRARI MD, Ot 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 08/21/2016 MOE FERRARI MD, Ot Z79.01 ACTIVITIES COORDINATOR (CURRENT) USE OF ANTICOAGULANT 08/21/2016 MOE FERRARI MD, Ot Z79.01 ACTIVITIES COORDINATOR (CURRENT) USE OF ANTICOAGULANT 08/22/2016 MOE FERRARI MD, Ot Z79.01 FDC (CURRENT) USE OF ANTICOAGULANT 08/23/2016 MOE FERRARI MD, Ot Z79.01 FDC (CURRENT) USE OF ANTICOAGULANT 08/23/2016 MOE FERRARI MD, Ot R63.4 ABNORMAL WEIGHT LOSS 08/25/2016 MOE FERRARI MD, Ot Z53.9 PROCEDURE AND TREATMENT NOT CARRIED OUT , 08/26/2016 MOE FERRARI MD, Ot Z51.81 ENCOUNTER FOR THERAPEUTIC DRUG LEVEL MON 08/26/2016 MOE FERRARI MD, Ot Z79.01 FDC (CURRENT) USE OF ANTICOAGULANT 08/30/2016 SOURAV VEGA MD Ot K90.0 CELIAC DISEASE 09/11/2016 SOURAV VEGA MD P Ot R63.4 ABNORMAL WEIGHT LOSS 09/11/2016 SOURAV VEGA MD P Ot R63.4 ABNORMAL WEIGHT LOSS 09/13/2016 MOE FERRARI MD, Ot Z51.81 ENCOUNTER FOR THERAPEUTIC DRUG LEVEL MON 09/13/2016 MOE FERRARI MD, Ot Z79.01 FDC (CURRENT) USE OF ANTICOAGULANT 09/15/2016 MOE FERRARI MD, Ot Z79.01 ACTIVITIES COORDINATOR (CURRENT) USE OF ANTICOAGULANT 09/15/2016 SOURAV VEGA MD Ot R63.4 ABNORMAL WEIGHT LOSS 09/15/2016 MOE FERRARI MD, Ot Z79.01 FDC (CURRENT) USE OF ANTICOAGULANT 09/18/2016 MOE FERRARI MD, Ot Z79.01 ACTIVITIES COORDINATOR (CURRENT) USE OF ANTICOAGULANT 09/18/2016 MOE FERRARI MD Ot K90.0 CELIAC DISEASE 09/18/2016 MOE FERRARI MD, Ot R63.4 ABNORMAL WEIGHT LOSS 09/18/2016 MOE FERRARI MD, Ot Z68.1 BODY MASS INDEX (BMI) 19 OR LESS, ADULT 09/18/2016 MOE FERRARI MD, Ot Z71.3 DIETARY COUNSELING AND SURVEILLANCE 09/20/2016 MOE FERRARI MD, Ot K90.0 CELIAC DISEASE 09/20/2016 MOE FERRARI MD, Ot R63.4 ABNORMAL WEIGHT LOSS 09/20/2016 MOE FERRARI MD, Ot Z68.1 BODY MASS INDEX (BMI) 19 OR LESS, ADULT 09/20/2016 MOE FERRARI MD, Ot Z71.3 DIETARY COUNSELING AND SURVEILLANCE 09/20/2016 MOE FERRARI MD, Ot Z79.01 ACTIVITIES COORDINATOR (CURRENT) USE OF ANTICOAGULANT 09/20/2016 SOURAV VEGA MD P Ot R63.4 ABNORMAL WEIGHT LOSS 09/20/2016 SOURAV VEGA MD Ot K90.0 CELIAC DISEASE 09/20/2016 SOURAV VEGA MD P Ot R63.4 ABNORMAL WEIGHT LOSS 09/20/2016 SOURAV VEGA MD P Ot R63.6 UNDERWEIGHT 09/20/2016 SOURAV VEGA MD Ot Z68.1 BODY MASS INDEX (BMI) 19 OR LESS, ADULT 09/20/2016 SOURAV VEGA MD Ot Z71.3 DIETARY COUNSELING AND SURVEILLANCE 09/22/2016 MOE FERRARI MD, Ot Z51.81 ENCOUNTER FOR THERAPEUTIC DRUG LEVEL MON 09/22/2016 MOE FERRARI MD, Ot Z79.01 ACTIVITIES COORDINATOR (CURRENT) USE OF ANTICOAGULANT 10/11/2016 MOE FERRARI MD, Ot Z51.81 ENCOUNTER FOR THERAPEUTIC DRUG LEVEL MON 10/11/2016 MOE FERRARI MD, Ot Z79.01 FDC (CURRENT) USE OF ANTICOAGULANT 10/16/2016 MOE FERRARI MD, Ot Z79.01 FDC (CURRENT) USE OF ANTICOAGULANT 10/16/2016 MOE FERRARI MD, Ot Z79.01 ACTIVITIES COORDINATOR (CURRENT) USE OF ANTICOAGULANT 10/17/2016 MOE FERRARI MD, Ot Z79.01 ACTIVITIES COORDINATOR (CURRENT) USE OF ANTICOAGULANT 10/18/2016 MOE FERRARI MD, Ot Z79.01 ACTIVITIES COORDINATOR (CURRENT) USE OF ANTICOAGULANT 10/19/2016 MOE FERRARI MD, Ot Z51.81 ENCOUNTER FOR THERAPEUTIC DRUG LEVEL MON 10/19/2016 MOE FERRARI MD, Ot Z79.01 ACTIVITIES COORDINATOR (CURRENT) USE OF ANTICOAGULANT 10/22/2016 MOE FERRARI MD, Ot Z51.81 ENCOUNTER FOR THERAPEUTIC DRUG LEVEL MON 10/22/2016 MOE FERRARI MD, Ot Z79.01 FDC (CURRENT) USE OF ANTICOAGULANT 11/06/2016 SOURAV VEGA MD Ot K90.0 CELIAC DISEASE 11/06/2016 SOURAV VEGA MD P Ot R63.4 ABNORMAL WEIGHT LOSS 11/06/2016 SOURAV VEGA MD Ot R63.6 UNDERWEIGHT 11/06/2016 SOURAV VEGA MD P Ot Z68.1 BODY MASS INDEX (BMI) 19 OR LESS, ADULT 11/06/2016 SOURAV VEGA MD Ot Z71.3 DIETARY COUNSELING AND SURVEILLANCE 11/07/2016 MOE FERRARI MD, Ot Z51.81 ENCOUNTER FOR THERAPEUTIC DRUG LEVEL MON 11/07/2016 MOE FERRARI MD, Ot Z79.01 ACTIVITIES COORDINATOR (CURRENT) USE OF ANTICOAGULANT 11/14/2016 MOE FERRARI MD, Ot Z79.01 FDC (CURRENT) USE OF ANTICOAGULANT 11/14/2016 MOE FERRARI MD, Ot Z79.01 ACTIVITIES COORDINATOR (CURRENT) USE OF ANTICOAGULANT 11/15/2016 MOE FERRARI MD, Ot Z79.01 FDC (CURRENT) USE OF ANTICOAGULANT 11/17/2016 MOE FERRARI MD, Ot Z51.81 ENCOUNTER FOR THERAPEUTIC DRUG LEVEL MON 11/17/2016 MOE FERRARI MD, Ot Z79.01 FDC (CURRENT) USE OF ANTICOAGULANT Procedures Code Description Performed By Performed On 13.41 01/29/2012 13.71 01/29/2012 45.23 06/26/2012 57.32 05/05/2013 Results Test Result Range Complete blood count (CBC) with automated white blood cell (WBC) differential - 03/17/16 13:54 Blood automated leukocyte count 6.73 4.0 -11.0 Erythrocytes 3.84 4.50-5.50 12.0-16.0;g/dL 11.0 13.5-17.0 Hematocrit 33.40 39.00-50.00 Automated erythrocyte mean corpuscular volume 87 80-100 Mean corpuscular hemoglobin (MCH) determination 28.6 26.0-34.0 Automated erythrocyte mean corpuscular hemoglobin concentration measurement ( mass/volume) 32.9 31.0-37.0 Erythrocyte distribution width 13.3 11.8 -15.6 Automated blood platelet count 252 150- 450 Automated blood platelet mean volume measurement 9.3 6.0-9.5 Automated neutrophil percentage 59 51- 67 Lymphocytes/100 leukocytes 25 20-46 Automated monocyte percentage 14 3-11 Eosinophil count auto 2 0-4 Automated basophil percentage 1 0-2 Automated blood neutrophil count 4.0 Blood lymphocytes count (number/volume) 1.7 Automated blood monocyte count 0.9 Blood absolute eosinophil count 0.1 Basophils 0.0 Prothrombin time (PT) with international normalized ratio (INR) - 03/17/16 13: 54 Prothrombin time (PT) in platelet poor plasma by coagulation assay 21.3 11.6-14.2 INR in platelet poor plasma by coagulation assay 1.9 0.8-1.4 Comprehensive metabolic panel - 03/17/16 13:54 Sodium measurement 81 70-110 Carbon dioxide measurement 26 22-29 Serum or plasma anion gap 16.0 3-15 BLOOD UREA NITROGEN 29 7-18 CREATININE SERUM 1.39 0.8-1.5 Brucella species antibody panel (IgG, IgM) 21 10-20 Estimated glomerular filtration rate (GFR) 58.3 Estimated glomerular filtration rate (GFR) non- 48.2 OSMOLALITY,CALCULATED 274 280-300 CALCIUM 9.7 8.8-10.8 Calculated ionized calcium measurement 4.4 3.8-4.6 BILIRUBIN,TOTAL 0.4 0.1-1.0 Serum or plasma alkaline phosphatase measurement 63 38-126 ASPARTATE AMINO TRANSFERASE 22 15-37 ALANINE AMINOTRANSFERASE 14 30-65 Serum or plasma total protein measurement 6.8 6.4-8.5 Serum or plasma albumin measurement 4.1 3.4-5.0 Serum or plasma albumin/globulin mass ratio 1.518 1.1-1.8 Vitamin D+Metabolites - 03/17/16 13:54 Vitamin D+Metabolites 68.7 30.0-100.0 Digoxin level - 03/17/16 13:54 Digoxin level 1.30 0.90-2.00 FERRITIN - 03/17/16 13:54 Serum or plasma ferritin measurement (mass/volume) 34 22-275 Serum or plasma gamma glutamyl transferase measurement (enzymatic activity/ volume) - 03/17/16 13:54 Serum or plasma gamma glutamyl transferase measurement (enzymatic activity/ volume) 15 12-64 Prothrombin time (PT) with international normalized ratio (INR) - 04/17/16 13: 56 Prothrombin time (PT) in platelet poor plasma by coagulation assay 22.6 11.6-14.2 INR in platelet poor plasma by coagulation assay 2.1 0.8-1.4 Prothrombin time (PT) with international normalized ratio (INR) - 05/18/16 13: 31 Prothrombin time (PT) in platelet poor plasma by coagulation assay 24.3 11.6-14.2 INR in platelet poor plasma by coagulation assay 2.3 0.8-1.4 Digoxin level - 05/23/16 10:00 Digoxin level 1.30 0.90-2.00 Prothrombin time (PT) with international normalized ratio (INR) - 06/16/16 11: 20 Prothrombin time (PT) in platelet poor plasma by coagulation assay 23.5 10.0-12.5 INR 2.1 0.8-1.4 Prothrombin time (PT) with international normalized ratio (INR) - 07/18/16 10: 02 Prothrombin time (PT) in platelet poor plasma by coagulation assay 23.4 10.0-12.5 INR 2.1 0.8-1.4 Complete blood count (CBC) with automated white blood cell (WBC) differential - 07/21/16 13:40 Blood automated leukocyte count 9.65 4.0 -11.0 Erythrocytes 3.73 4.50-5.50 12.0-16.0;g/dL 10.9 13.5-17.0 Hematocrit 33.00 39.00-50.00 Automated erythrocyte mean corpuscular volume 89 80-100 Mean corpuscular hemoglobin (MCH) determination 29.2 26.0-34.0 Automated erythrocyte mean corpuscular hemoglobin concentration measurement ( mass/volume) 33.0 31.0-37.0 Erythrocyte distribution width 12.8 11.8 -15.6 Automated blood platelet count 269 150- 450 Automated blood platelet mean volume measurement 9.2 6.0-9.5 Automated neutrophil percentage 67 51- 67 Lymphocytes/100 leukocytes 16 20-46 Automated monocyte percentage 15 3-11 Eosinophil count auto 2 0-4 Automated basophil percentage 0 0-2 Automated blood neutrophil count 6.5 Blood lymphocytes count (number/volume) 1.5 Automated blood monocyte count 1.4 Blood absolute eosinophil count 0.2 Basophils 0.0 FERRITIN - 07/21/16 13:40 Serum or plasma ferritin measurement (mass/volume) 34 22-275 Vitamin D+Metabolites - 08/03/16 11:50 Vitamin D+Metabolites 61.4 30.0-100.0 Prothrombin time (PT) with international normalized ratio (INR) - 08/21/16 13: 37 Prothrombin time (PT) in platelet poor plasma by coagulation assay 22.4 10.0-12.5 INR 2.0 0.8-1.4 Prothrombin time (PT) with international normalized ratio (INR) - 09/15/16 13: 42 Prothrombin time (PT) in platelet poor plasma by coagulation assay 25.1 10.0-12.5 INR 2.3 0.8-1.4 Prothrombin time (PT) with international normalized ratio (INR) - 10/16/16 14: 15 Prothrombin time (PT) in platelet poor plasma by coagulation assay 17.4 10.0-12.5 INR 1.6 0.8-1.4 Prothrombin time (PT) with international normalized ratio (INR) - 11/14/16 13: 42 Prothrombin time (PT) in platelet poor plasma by coagulation assay 20.9 10.0-12.5 INR 1.9 0.8-1.4 Encounters ACCT No. Visit Date/Time Discharge Status Pt. Type Provider Facility Loc./Unit Complaint [id number] 10/06/2015 14:51:00 2015 23:59:00 DIS Outpatient Joel Mcwilliams [facility] Pulm 5-6 MO RCK/ASTHMA npv [id number] 03/08/2015 12:58:00 2014 23:59:00 DIS Outpatient Arielle Duncan [facility] Pulm 6 [place] K [id number] 07/29/2014 12:58:00 2013 23:59:00 DIS Outpatient Joel Mcwilliams [facility] Pulm 6 MO K
--- OUTSIDE RECORDS SUMMARY | 2016-11-24 16:23 | XMS REPORT | Continuity of Care Document ---
Author Author [facility] Organization [facility] Address Unknown Phone Unavailable Allergies Active Description Code Type Severity Reaction Onset Reported/Identified Relationship to Patient Clinical Status Yes tamsulosin HCl [id number] Drug Allergy Unknown N/A 07/29/2012 Yes ciprofloxacin NKMA N/A unknown 12/16/2013 Yes doxycycline NKMA N/A unknown 12/16/2013 Yes dutasteride NKMA N/A Unknown 12/16/2013 Yes finasteride NKMA N/A Unknown 12/16/2013 Yes sulfamethoxazole NKMA N/A unknown 12/16/2013 Yes sulfamethoxazole [id number] Drug Allergy Mild Rash 06/08/2014 Yes trimethoprim [id number] Drug Allergy Mild Rash 06/08/2014 Yes ciprofloxacin [id number] Drug Allergy Unknown N/A 06/08/2014 Yes doxycycline [id number] Drug Allergy Unknown N/A 06/08/2014 Yes dutasteride [id number] Drug Allergy Unknown N/A 06/08/2014 Yes finasteride [id number] Drug Allergy Unknown N/A 06/08/2014 Yes Flomax [...] GOEL MD Ot 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 06/12/2014 MAEGAN GOEL MD Ot 427.31 ATRIAL FIBRILLATION 06/12/2014 MAEGAN GOEL MD Ot 486 PNEUMONIA, ORGANISM NOS 06/12/2014 MAEGAN GOEL MD Ot 493.90 ASTHMA, UNSPECIFIED 06/12/2014 MAEGAN GOEL MD Ot 518.82 OTHER PULMONARY INSUFFICIENCY, NEC 06/12/2014 MAEGAN GOEL MD Ot 530.81 ESOPHAGEAL REFLUX 06/12/2014 MAEGAN GOEL MD Ot 564.00 UNSPEC CONSTIPATION 06/12/2014 MAEGAN GOLE MD Ot 719.47 JOINT PAIN-ANKLE 06/12/2014 MAEGAN [...] English Ot 789.00 10/07/2014 VONDA ROSALES, MOE English Ot 790.6 10/07/2014 VONDA ROSALES, MOE English [...] DO Ot 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 07/03/2015 SONNY RAYGOZA DO Ot I48.0 PAROXYSMAL ATRIAL FIBRILLATION 07/03/2015 SONNY RAYGOZA DO Ot I48.2 CHRONIC ATRIAL FIBRILLATION 07/03/2015 SONNY RAYGOZA DO Ot I95.1 ORTHOSTATIC HYPOTENSION 07/03/2015 SONNY RAYGOZA DO Ot R00.2 PALPITATIONS 07/03/2015 SONNY RAYGOZA DO Ot Z79.01 HEARING SCREENER (CURRENT) USE OF ANTICOAGULANT 07/06/2015 VONDA ROSALES, MOE English Ot Z51.81 07/06/2015 VONDA ROSALES, MOE English Ot Z79.01 08/05/2015 VONDA ROSALES, MOE English Ot Z51.81 08/05/2015 VONDA ROSALES, MOE English Ot Z79.01 08/05/2015 VONDA ROSALES, MOE English Ot Z79.899 09/17/2015 VONDA ROSALES, MOE English Ot Z79.01 DETENTION (CURRENT) USE OF ANTICOAGULANT 10/15/2015 VONDA ROSALES, [...] MON 12/08/2015 MOE FERRARI MD Ot Z79.01 DETENTION (CURRENT) USE OF ANTICOAGULANT 12/20/2015 MOE FERRARI MD, Ot Z79.01 HEARING SCREENER (CURRENT) USE OF ANTICOAGULANT 12/20/2015 MOE FERRARI MD Ot Z79.01 DETENTION (CURRENT) USE OF ANTICOAGULANT 12/24/2015 MOE FERRARI MD, Ot Z79.01 DETENTION (CURRENT) USE OF ANTICOAGULANT 01/13/2016 MOE FERRARI MD Ot Z51.81 ENCOUNTER FOR THERAPEUTIC DRUG LEVEL MON 01/13/2016 MOE FERRARI MD Ot Z79.01 DETENTION (CURRENT) USE OF ANTICOAGULANT 01/19/2016 MOE FERRARI MD Ot Z79.01 DETENTION (CURRENT) USE OF ANTICOAGULANT 01/19/2016 MOE FERRARI MD Ot Z79.01 DETENTION (CURRENT) USE OF ANTICOAGULANT 01/20/2016 MOE FERRARI MD Ot Z79.01 HEARING SCREENER (CURRENT) USE OF ANTICOAGULANT 02/09/2016 MOE FERRARI MD Ot Z51.81 ENCOUNTER FOR THERAPEUTIC DRUG LEVEL MON 02/09/2016 MOE FERRARI MD Ot Z79.01 HEARING SCREENER (CURRENT) USE OF ANTICOAGULANT 02/17/2016 MOE FERRARI MD Ot Z51.81 ENCOUNTER FOR THERAPEUTIC DRUG LEVEL MON 02/17/2016 MOE FERRARI MD Ot Z79.01 HEARING SCREENER (CURRENT) USE OF ANTICOAGULANT 02/18/2016 MOE FERRARI MD Ot Z79.01 DETENTION (CURRENT) USE OF ANTICOAGULANT 02/18/2016 MOE FERRARI MD Ot Z79.01 DETENTION (CURRENT) USE OF ANTICOAGULANT 02/22/2016 MOE FERRARI MD Ot Z79.01 DETENTION (CURRENT) USE OF ANTICOAGULANT 02/23/2016 MOE FERRARI MD, Ot Z51.81 ENCOUNTER FOR THERAPEUTIC DRUG LEVEL MON 02/23/2016 MOE FERRARI MD Ot Z79.01 HEARING SCREENER (CURRENT) USE OF ANTICOAGULANT 03/09/2016 MOE FERRARI MD, Ot Z51.81 ENCOUNTER FOR THERAPEUTIC DRUG LEVEL MON 03/09/2016 MOE FERRARI MD, Ot Z79.01 DETENTION (CURRENT) USE OF ANTICOAGULANT 03/10/2016 MOE FERRARI MD, Ot Z51.81 ENCOUNTER FOR THERAPEUTIC DRUG LEVEL MON 03/10/2016 MOE FERRARI MD, Ot Z79.01 DETENTION (CURRENT) USE OF ANTICOAGULANT 03/17/2016 MOE FERRARI [...] Ot I48.91 UNSPECIFIED ATRIAL FIBRILLATION 03/22/2016 MOE FERRARI MD, Ot 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 03/22/2016 MOE FERRARI MD, Ot 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 03/22/2016 MOE FERRARI MD, Ot R79.89 OTHER SPECIFIED ABNORMAL FINDINGS OF BLO 03/22/2016 MOE FERRARI MD, Ot Z79.01 HEARING SCREENER (CURRENT) USE OF ANTICOAGULANT 03/28/2016 MOE FERRARI [...] BLO 03/28/2016 MOE FERRARI MD, Ot Z79.01 HEARING SCREENER (CURRENT) USE OF ANTICOAGULANT 04/10/2016 MOE FERRARI [...] BLO 04/10/2016 MOE FERRARI MD, Ot Z79.01 HEARING SCREENER (CURRENT) USE OF ANTICOAGULANT 04/17/2016 MOE FERRARI MD, Ot Z79.01 HEARING SCREENER (CURRENT) USE OF ANTICOAGULANT 04/17/2016 MOE FERRARI MD, Ot Z79.01 DETENTION (CURRENT) USE OF ANTICOAGULANT 04/18/2016 MEO FERRARI MD, Ot Z79.01 HEARING SCREENER (CURRENT) USE OF ANTICOAGULANT 04/21/2016 MOE FERRARI MD, Ot Z79.01 DETENTION (CURRENT) USE OF ANTICOAGULANT 04/21/2016 MOE FERRARI MD, Ot Z51.81 ENCOUNTER FOR THERAPEUTIC DRUG LEVEL MON 04/21/2016 MOE FERRARI MD, Ot Z79.01 HEARING SCREENER (CURRENT) USE OF ANTICOAGULANT 04/27/2016 MOE FERRARI [...] BLO 04/27/2016 MOE FERRARI MD, Ot Z79.01 DETENTION (CURRENT) USE OF ANTICOAGULANT 05/10/2016 MOE FERRARI MD Ot Z51.81 ENCOUNTER FOR THERAPEUTIC DRUG LEVEL MON 05/10/2016 MOE FERRARI MD Ot Z79.01 HEARING SCREENER (CURRENT) USE OF ANTICOAGULANT 05/18/2016 MOE FERRARI MD Ot Z79.01 DETENTION (CURRENT) USE OF ANTICOAGULANT 05/18/2016 MOE FERRARI MD Ot Z79.01 HEARING SCREENER (CURRENT) USE OF ANTICOAGULANT 2016 Barbie ROSALES, Atifil L Ot I48.0 PAROXYSMAL ATRIAL FIBRILLATION 2016 Barbie ROSALES, Karil L Ot I48.0 PAROXYSMAL ATRIAL FIBRILLATION 05/24/2016 MOE FERRARI MD Ot R63.4 ABNORMAL WEIGHT LOSS 05/24/2016 MOE FERRARI MD Ot R63.4 ABNORMAL WEIGHT LOSS 05/24/2016 MOE FERRARI MD Ot Z51.81 ENCOUNTER FOR THERAPEUTIC DRUG LEVEL MON 05/24/2016 MOE FERRARI MD Ot Z79.01 HEARING SCREENER (CURRENT) USE OF ANTICOAGULANT 05/24/2016 Domingo Valentin MD L Ot I48.0 PAROXYSMAL ATRIAL FIBRILLATION 05/24/2016 MOE FERRARI MD Ot R63.4 ABNORMAL WEIGHT LOSS 05/25/2016 MOE FERRARI MD Ot Z51.81 ENCOUNTER FOR THERAPEUTIC DRUG LEVEL MON 05/25/2016 MOE FERRARI MD Ot Z79.01 DETENTION (CURRENT) USE OF ANTICOAGULANT 05/25/2016 Domingo Valentin MD Ot I48.0 PAROXYSMAL ATRIAL FIBRILLATION 06/09/2016 MOE FERRARI MD Ot R63.4 ABNORMAL WEIGHT LOSS 06/12/2016 Barbie ROSALES, Karil L Ot I48.0 PAROXYSMAL ATRIAL FIBRILLATION 06/12/2016 MOE FERRARI MD Ot Z51.81 ENCOUNTER FOR THERAPEUTIC DRUG LEVEL MON 06/12/2016 MOE FERRARI MD Ot Z79.01 DETENTION (CURRENT) USE OF ANTICOAGULANT 06/13/2016 MOE FERRARI MD Ot R63.4 ABNORMAL WEIGHT LOSS 06/14/2016 MOE FERRARI MD Ot Z51.81 ENCOUNTER FOR THERAPEUTIC DRUG LEVEL MON 06/14/2016 MOE FERRARI MD Ot Z79.01 HEARING SCREENER (CURRENT) USE OF ANTICOAGULANT 06/14/2016 Barbie ROSALES Karil L Ot I48.0 PAROXYSMAL ATRIAL FIBRILLATION 06/16/2016 MOE FERRARI MD Ot Z79.01 HEARING SCREENER (CURRENT) USE OF ANTICOAGULANT 06/16/2016 MOE FERRARI MD Ot Z79.01 HEARING SCREENER (CURRENT) USE OF ANTICOAGULANT 06/16/2016 MOE FERRARI MD, Ot Z79.01 HEARING SCREENER (CURRENT) USE OF ANTICOAGULANT 06/19/2016 Ot 244.9 [...] FERRARI MD Ot V58.61 ANTICOAGULANTS,LT,CURRENT USE 06/19/2016 MEO FERRARI MD Ot 276.51 DEHYDRATION 06/19/2016 MOE [...] MON 06/19/2016 MOE FERRARI MD, Ot Z79.01 HEARING SCREENER (CURRENT) USE OF ANTICOAGULANT 06/19/2016 MOE FERRARI MD, Ot Z51.81 ENCOUNTER FOR THERAPEUTIC DRUG LEVEL MON 06/19/2016 MOE FERRARI MD, Ot Z79.01 HEARING SCREENER (CURRENT) USE OF ANTICOAGULANT 06/19/2016 Nati Kim APRN Ot I48.91 UNSPECIFIED ATRIAL FIBRILLATION 06/19/2016 MOE FERRARI MD, Ot Z51.81 ENCOUNTER FOR THERAPEUTIC DRUG LEVEL MON 06/19/2016 MOE FERRARI MD, Ot Z79.01 HEARING SCREENER (CURRENT) USE OF ANTICOAGULANT 06/19/2016 MOE FERRARI MD Ot Z79.899 OTHER HEARING SCREENER (CURRENT) DRUG THERAPY 06/19/2016 MOE FERRARI MD Ot Z53.9 PROCEDURE AND TREATMENT NOT CARRIED OUT , 06/19/2016 MOE FERRARI MD, Ot N28.1 CYST OF KIDNEY, ACQUIRED 06/19/2016 MOE FERRARI MD Ot Z51.81 ENCOUNTER FOR THERAPEUTIC DRUG LEVEL MON 06/19/2016 MOE FERRARI MD, Ot Z79.01 DETENTION (CURRENT) USE OF ANTICOAGULANT 06/19/2016 MOE FERRARI MD Ot Z51.81 ENCOUNTER FOR THERAPEUTIC DRUG LEVEL MON 06/19/2016 MOE FERRARI MD, Ot Z79.01 DETENTION (CURRENT) USE OF ANTICOAGULANT 06/19/2016 MOE FERRARI MD Ot Z51.81 ENCOUNTER FOR THERAPEUTIC DRUG LEVEL MON 06/19/2016 MOE FERRARI MD Ot Z79.01 HEARING SCREENER (CURRENT) USE OF ANTICOAGULANT 06/19/2016 MOE FERRARI MD, Ot Z51.81 ENCOUNTER FOR THERAPEUTIC DRUG LEVEL MON 06/19/2016 MOE FERRARI MD, Ot Z79.01 HEARING SCREENER (CURRENT) USE OF ANTICOAGULANT 06/19/2016 MOE FERRARI MD, Ot Z51.81 ENCOUNTER FOR THERAPEUTIC DRUG LEVEL MON 06/19/2016 MOE FERRARI MD, Ot Z79.01 HEARING SCREENER (CURRENT) USE OF ANTICOAGULANT 06/19/2016 MOE FERRARI [...] BLO 06/19/2016 MOE FERRARI MD, Ot Z79.01 DETENTION (CURRENT) USE OF ANTICOAGULANT 06/19/2016 MOE FERRARI MD, Ot Z51.81 ENCOUNTER FOR THERAPEUTIC DRUG LEVEL MON 06/19/2016 MOE FERRARI MD, Ot Z79.01 DETENTION (CURRENT) USE OF ANTICOAGULANT 06/19/2016 MOE FERRARI MD Ot R63.4 ABNORMAL WEIGHT LOSS 06/19/2016 MOE FERRARI MD, Ot Z51.81 ENCOUNTER FOR THERAPEUTIC DRUG LEVEL MON 06/19/2016 MOE FERRARI MD, Ot Z79.01 HEARING SCREENER (CURRENT) USE OF ANTICOAGULANT 06/19/2016 Domingo Valentin MD Ot I48.0 PAROXYSMAL ATRIAL FIBRILLATION 06/19/2016 MOE FERRARI MD Ot Z79.01 HEARING SCREENER (CURRENT) USE OF ANTICOAGULANT 06/21/2016 MOE FERRARI MD, Ot Z51.81 ENCOUNTER FOR THERAPEUTIC DRUG LEVEL MON 06/21/2016 MOE FERRARI MD, Ot Z79.01 HEARING SCREENER (CURRENT) USE OF ANTICOAGULANT 07/06/2016 MOE FERRARI [...] BLO 07/06/2016 MOE FERRARI MD, Ot Z79.01 HEARING SCREENER (CURRENT) USE OF ANTICOAGULANT 07/10/2016 MOE FERRARI MD, Ot Z51.81 ENCOUNTER FOR THERAPEUTIC DRUG LEVEL MON 07/10/2016 MOE FERRARI MD, Ot Z79.01 DETENTION (CURRENT) USE OF ANTICOAGULANT 07/18/2016 MOE FERRARI MD, Ot Z79.01 HEARING SCREENER (CURRENT) USE OF ANTICOAGULANT 07/18/2016 MOE FERRARI MD, Ot Z79.01 DETENTION (CURRENT) USE OF ANTICOAGULANT 07/18/2016 MOE FERRARI MD, Ot Z79.01 DETENTION (CURRENT) USE OF ANTICOAGULANT 07/18/2016 MOE FERRARI MD, Ot Z79.01 DETENTION (CURRENT) USE OF ANTICOAGULANT 07/21/2016 MOE FERRARI MD, Ot 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 07/21/2016 MOE FERRARI MD, Ot 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 07/22/2016 MOE FERRARI MD, Ot 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 07/24/2016 MOE FERRARI MD, Ot 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 07/24/2016 MOE FERRARI MD, Ot Z51.81 ENCOUNTER FOR THERAPEUTIC DRUG LEVEL MON 07/24/2016 MOE FERRARI MD, Ot Z79.01 DETENTION (CURRENT) USE OF ANTICOAGULANT 07/26/2016 MOE FERRARI MD, Ot Z51.81 ENCOUNTER FOR THERAPEUTIC DRUG LEVEL MON 07/26/2016 MOE FERRARI MD, Ot Z79.01 HEARING SCREENER (CURRENT) USE OF ANTICOAGULANT 07/28/2016 MOE FERRARI MD, Ot 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 08/10/2016 SILVIA ROSALES, SOURAV [place] Ot K90.0 CELIAC DISEASE 08/11/2016 MOE FERRARI MD, Ot Z51.81 ENCOUNTER FOR THERAPEUTIC DRUG LEVEL MON 08/11/2016 MOE FERRARI MD, Ot Z79.01 DETENTION (CURRENT) USE OF ANTICOAGULANT 08/14/2016 MOE FERRARI MD, Ot R63.4 ABNORMAL WEIGHT LOSS 08/16/2016 MOE FERRARI MD, Ot 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 08/21/2016 MOE FERRARI MD, Ot Z79.01 HEARING SCREENER (CURRENT) USE OF ANTICOAGULANT 08/21/2016 MOE FERRARI MD, Ot Z79.01 HEARING SCREENER (CURRENT) USE OF ANTICOAGULANT 08/22/2016 MOE FERRARI MD, Ot Z79.01 DETENTION (CURRENT) USE OF ANTICOAGULANT 08/23/2016 MOE FERRARI MD, Ot Z79.01 DETENTION (CURRENT) USE OF ANTICOAGULANT 08/23/2016 MOE FERRARI MD, Ot R63.4 ABNORMAL WEIGHT LOSS 08/25/2016 MOE FERRARI MD, Ot Z53.9 PROCEDURE AND TREATMENT NOT CARRIED OUT , 08/26/2016 MOE FERRARI MD, Ot Z51.81 ENCOUNTER FOR THERAPEUTIC DRUG LEVEL MON 08/26/2016 MOE FERRARI MD, Ot Z79.01 DETENTION (CURRENT) USE OF ANTICOAGULANT 08/30/2016 SOURAV VEGA MD Ot K90.0 CELIAC DISEASE 09/11/2016 SOURAV VEGA MD P Ot R63.4 ABNORMAL WEIGHT LOSS 09/11/2016 SOURAV VEGA MD P Ot R63.4 ABNORMAL WEIGHT LOSS 09/13/2016 MOE FERRARI MD, Ot Z51.81 ENCOUNTER FOR THERAPEUTIC DRUG LEVEL MON 09/13/2016 MOE FERRARI MD, Ot Z79.01 DETENTION (CURRENT) USE OF ANTICOAGULANT 09/15/2016 MOE FERRARI MD, Ot Z79.01 HEARING SCREENER (CURRENT) USE OF ANTICOAGULANT 09/15/2016 SOURAV VEGA MD Ot R63.4 ABNORMAL WEIGHT LOSS 09/15/2016 MOE FERRARI MD, Ot Z79.01 DETENTION (CURRENT) USE OF ANTICOAGULANT 09/18/2016 MOE FERRARI MD, Ot Z79.01 HEARING SCREENER (CURRENT) USE OF ANTICOAGULANT 09/18/2016 MOE FERRARI [...] SURVEILLANCE 09/20/2016 MOE FERRARI MD, Ot Z79.01 HEARING SCREENER (CURRENT) USE OF ANTICOAGULANT 09/20/2016 SOURAV VEGA [...] MON 09/22/2016 MOE FERRARI MD, Ot Z79.01 HEARING SCREENER (CURRENT) USE OF ANTICOAGULANT 10/11/2016 MOE FERRARI MD, Ot Z51.81 ENCOUNTER FOR THERAPEUTIC DRUG LEVEL MON 10/11/2016 MOE FERRARI MD, Ot Z79.01 DETENTION (CURRENT) USE OF ANTICOAGULANT 10/16/2016 MOE FERRARI MD, Ot Z79.01 DETENTION (CURRENT) USE OF ANTICOAGULANT 10/16/2016 MOE FERRARI MD, Ot Z79.01 HEARING SCREENER (CURRENT) USE OF ANTICOAGULANT 10/17/2016 MOE FERRARI MD, Ot Z79.01 HEARING SCREENER (CURRENT) USE OF ANTICOAGULANT 10/18/2016 MOE FERRARI MD, Ot Z79.01 HEARING SCREENER (CURRENT) USE OF ANTICOAGULANT 10/19/2016 MOE FERRARI MD, Ot Z51.81 ENCOUNTER FOR THERAPEUTIC DRUG LEVEL MON 10/19/2016 MOE FERRARI MD, Ot Z79.01 HEARING SCREENER (CURRENT) USE OF ANTICOAGULANT 10/22/2016 MOE FERRARI MD, Ot Z51.81 ENCOUNTER FOR THERAPEUTIC DRUG LEVEL MON 10/22/2016 MOE FERRARI MD, Ot Z79.01 DETENTION (CURRENT) USE OF ANTICOAGULANT 11/06/2016 SOURAV VEGA [...] MON 11/07/2016 MOE FERRARI MD, Ot Z79.01 HEARING SCREENER (CURRENT) USE OF ANTICOAGULANT 11/14/2016 MOE FERRARI MD, Ot Z79.01 DETENTION (CURRENT) USE OF ANTICOAGULANT 11/14/2016 MOE FERRARI MD, Ot Z79.01 HEARING SCREENER (CURRENT) USE OF ANTICOAGULANT 11/15/2016 MOE FERRARI MD, Ot Z79.01 DETENTION (CURRENT) USE OF ANTICOAGULANT 11/17/2016 MOE FERRARI MD, Ot Z51.81 ENCOUNTER FOR THERAPEUTIC DRUG LEVEL MON 11/17/2016 MOE FERRARI MD, Ot Z79.01 DETENTION (CURRENT) USE OF ANTICOAGULANT Procedures Code Description [...] Status Pt. Type Provider Facility Loc./Unit Complaint [id number] 10/06/2015 14:51:00 2015 23:59:00 DIS Outpatient Joel Mcwilliams [facility] Pulm 5-6 MO RCK/ASTHMA npv [id number] 03/08/2015 12:58:00 2014 23:59:00 DIS Outpatient Arielle Duncan [facility] Pulm 6 MO K [id number] 07/29/2014 12:58:00 2013 23:59:00 DIS Outpatient Joel Mcwilliams [facility] Pulm 6 MO K
[2016-11-24] MEDS ORDERED: SODIUM CHLORIDE FLUSH 10 ML SYR IV PRN (17:40)
[2016-11-24] MEDS ORDERED: SODIUM CHLORIDE FLUSH 3 ML SYR IV PRN (17:40)
[2016-11-24 17:54] LABS: BASOPHILS % (AUTO) 0 % (0-2); EOSINOPHILS # (AUTO) 0.1 10^3uL; EOSINOPHILS % (AUTO) 1 % (0-4); LYMPHOCYTES # (AUTO) 2.4 X10^3; MEAN CORPUSCULAR HEMOGLOBIN 29.1 PG (26.0-34.0); MEAN CORPUSCULAR VOLUME 88 FL (80-100); MEAN PLATELET VOLUME 9.5 FL (6.0-9.5); MONOCYTES # (AUTO) 2.1 X10^3; MONOCYTES % (AUTO) 13 % (3-11); NEUTROPHILS # (AUTO) 11.6 X10^3; NEUTROPHILS % (AUTO) 71 % (51-67); PLATELET COUNT 271 10^3uL (150-450); WHITE BLOOD COUNT 16.37 10^3uL (4.0-11.0)
--- NOTE | 2016-11-24 17:58 | NUR ---
Patient up to toilet to attempt to provide urine specimen.
[2016-11-24 18:06] LABS: ALBUMIN 4.2 g/dL (3.4-5.0); ALKALINE PHOSPHATASE 96 U/L (38-126); BUN/CREATININE RATIO 22 (10-20); CALCULATED IONIZED CALCIUM 3.9 mg/dL (3.8-4.6); TOTAL PROTEIN 7.3 g/dL (6.4-8.5)
[2016-11-24 18:19] LABS: BILIRUBIN,URINE Negative (Negative); COLOR,URINE Yellow; GLUCOSE, URINE (UA) Negative (Negative); LEUKOCYTE ESTERASE ,URINE Negative (Negative); PH,URINE 7.5 (5.0 - 8.0); UROBILINOGEN,URINE 0.2 mg/dL (0.2-1.0)
[2016-11-24 18:22] LABS: CLARITY,URINE Slightly Cloudy
[2016-11-24 18:23] LABS: INFLUENZA VIRUS TYPE A ANTIBOD Negative (NEGATIVE); INFLUENZA VIRUS TYPE B ANTIBOD Negative (NEGATIVE)
[2016-11-24 18:33] LABS: RBC,URINE 0-2 /HPF; URINE CENTRIFUGED VOLUME 12 mL
--- NOTE | 2016-11-24 18:52 | Diagnostic Imaging Report ---
INDICATION: Lower respiratory infection. EXAMINATION: Portable chest at 6:07 p.m. FINDINGS: There are emphysematous changes in the lungs. There is a dual-chamber pacemaker. There are no consolidating infiltrates. There are no effusions or pneumothoraces. IMPRESSION: COPD. No acute abnormalities. Dictated by: Dictated on workstation # [id number]
[2016-11-24] MEDS ORDERED: RANI300T6 PO (19:01)
[2016-11-24] MEDS ORDERED: DIGO125T PO (19:01)
[2016-11-24 20:18] VITALS: BP 160/79
== END 2016-11-24 20:14 | disposition home or self-care (01) ==
LOC: ED 16:17
DX: D64.9 Anemia, unspecified (principal); B34.9 Viral infection, unspecified; E86.0 Dehydration; K90.0 Celiac disease
CPT/HCPCS: 36415; 71010; 80053; 81003; 81015; 84484; 85025; 87502; 93005; 96360; 99285; J7030; 93010; 99284

== ENCOUNTER → 2016-11-27 | Outpatient (CLI) | payer MEDICARE ==
[~2016-11-27] MED LIST changes: +DIGO125T PO; +RANI300T6 PO
== END ==
LOC: RAD 13:19
PROVIDERS: ATTEND Internal Medicine Cardiovascular Disease
DX: I25.10 Atherosclerotic heart disease of native coronary artery without angina pectoris (principal)
CPT/HCPCS: 93306

== ENCOUNTER → 2016-12-14 | Outpatient (CLI) | payer MEDICARE | LOC: LAB 11:29 | PROVIDERS: ATTEND Family Medicine | DX: Z51.81 Encounter for therapeutic drug level monitoring (principal); Z79.01 Long term (current) use of anticoagulants | CPT/HCPCS: 36415; 85610 ==

== ENCOUNTER → 2016-12-28 | Outpatient (CLI) | payer MEDICARE ==
[2016-12-28 14:22] LABS: BASOPHILS % (AUTO) 1 % (0-2); EOSINOPHILS # (AUTO) 0.2 10^3uL; EOSINOPHILS % (AUTO) 2 % (0-4); LYMPHOCYTES # (AUTO) 1.3 X10^3; MEAN CORPUSCULAR HEMOGLOBIN 28.4 PG (26.0-34.0); MEAN CORPUSCULAR HGB CONC 32.5 g/dL (31.0-37.0); MEAN CORPUSCULAR VOLUME 88 FL (80-100); MEAN PLATELET VOLUME 9.2 FL (6.0-9.5); MONOCYTES # (AUTO) 0.8 X10^3; MONOCYTES % (AUTO) 12 % (3-11); NEUTROPHILS # (AUTO) 4.5 X10^3; NEUTROPHILS % (AUTO) 65 % (51-67); PLATELET COUNT 277 10^3uL (150-450); WHITE BLOOD COUNT 6.83 10^3uL (4.0-11.0)
[2016-12-28 14:27] LABS: ABSOLUTE RETIC # 37 10^3uL (22-82)
[2016-12-28 14:33] LABS: ANION GAP 17.2 MEQ/L (3-15)
== END ==
LOC: LAB 14:02
PROVIDERS: ATTEND Family Medicine
DX: R79.89 Other specified abnormal findings of blood chemistry (principal); D50.8 Other iron deficiency anemias; I49.8 Other specified cardiac arrhythmias
CPT/HCPCS: 36415; 80048; 80162; 85025; 85045